=== PATIENT | male | born 1995 ===

== ENCOUNTER 2025-01-30 19:05 | Emergency (ER) | payer SELFPAY ==
[~2025-01-30] VITALS: Ht 172.7 cm; Wt 95.3 kg
== END 2025-01-30 22:36 | disposition home or self-care (01) ==
LOC: ED 19:05
DX: S93.402A Sprain of unspecified ligament of left ankle, initial encounter (principal); W10.8XXA Fall (on) (from) other stairs and steps, initial encounter; Y93.01 Activity, walking, marching and hiking; Y92.89 Other specified places as the place of occurrence of the external cause; Y99.8 Other external cause status